=== PATIENT | male | born 1975 | race Caucasian/White ===

== ENCOUNTER 2017-01-04 09:40 | Emergency (ER) | payer BC ==
[~2017-01-04] VITALS: Ht 177.8 cm; Wt 88.2 kg
[2017-01-04 09:52] VITALS: TEMP 37.1; Ht 177.8 cm; Wt 88.2 kg
[2017-01-04 11:44] LABS: BASO % 0.1 %; BASO ABS # 0.01 K/uL (0-0.2); COMPLETE YES; EOS % 0.1 %; HEMATOCRIT 45.6 % (42-52); IG% 0.2 %; LYMPH % 11.3 %; LYMPH ABS # 1.08 K/uL (1.2-3.4); MEAN CELL VOLUME 89.1 fL (80-100); MEAN CORPUSCULAR HEMOGLOBIN 30.9 pg (25-34); MEAN CORPUSCULAR HGB CONC 34.6 g/dl (32-36); MONO % 10.6 %; NEUT % 77.7 %; PLATELET COUNT 172 K/uL (130-400); RED BLOOD COUNT 5.12 M/uL (4.7-6.1); WHITE BLOOD COUNT 9.54 K/uL (4.8-10.8)
[2017-01-04 12:10] LABS: ALB/GLOB RATIO 1.1 (0.9-2); BUN/CREATININE RATIO 14.7 (10-20); CALCIUM 9.3 mg/dl (8.5-10.1); CREATININE 1.1 mg/dl (0.60-1.40)
--- NOTE | 2017-01-04 13:47 | EMERGENCY ROOM VISIT NOTE ---
History Report prepared by Mary: Dany Leonard Under the Supervision of: Dr. Sadia Farias D.O. First contact with patient: 10:24 Chief Complaint: FLU LIKE SX Stated Complaint: SORE THROAT, SWOLLEN NODE IN NECK, FEVER, CHILLS History of Present Illness The patient is a 41 year old male who presents to the Emergency Room with complaints of worsening flu like symptoms starting three days ago. He rates his discomfort as a 2/10 in severity. The patient states that he has been experiencing a sore throat in the back left corner of his throat, swollen lymph nodes, congestion in his head, mild fevers, chills, fatigue, and loss of appetite. He reports that his throat does not feel tight and that there is mild pain when swallowing. The patient reports that he woke up in the middle of the night last night and was experiencing diaphoresis. The patient also reports that he felt a "twinge" on his left abdomen yesterday but admits it has resolved. He states that he has a history of a diagnosed seizure disorder, which he takes Dilantin for. The patient states that his last seizure was months ago and reports his seizures usually occur if he misses a dose. 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 He states that he had an encounter of unprotected sex in last 40 days and is concerned this contributed to his symptoms. The patient reports that he did not have any concerns at the time of encounter and has not had any prior STD exposures. He denies any recent travel, vomiting, diarrhea, nausea, rashes, sores, dyspnea, chest pain, and cough. Source of History: patient Onset: three days ago Position: other (global) Symptom Intensity: 2/10 Quality: other (fatigue) Timing: worsening Associated Symptoms: + fevers, + chills, + headache, + diaphoresis, + abdominal pain, + fatigue, No chest pain, No SOB, No nausea, No vomiting, No diarrhea, No rash Review of Systems See HPI for pertinent positives & negatives. A total of 10 systems reviewed and were otherwise negative. Past Medical & Surgical Medical Problems: (1) Bronchitis (2) Seizure disorder (3) Stomach problems Family History Diabetes mellitus FHx: cancer Hypertension Kidney disease Kidney stones Seizures Social History Smoking Status: Former Smoker Smokeless Tobacco Use: No Alcohol Use: occasionally Drug Use: none Housing Status: lives with family Occupation Status: employed Current/Historical Medications Scheduled Doxycycline Monohydrate (Monodox), 100 MG PO BID Physical Exam Vital Signs Date Time Temp Pulse Resp B/P (MAP) Pulse Ox O2 Delivery O2 Flow Rate FiO2 01/04/17 14:21 101 20 134/89 99 Room Air 01/04/17 13:38 102 18 144/88 97 Room Air 01/04/17 12:43 106 18 148/84 97 Room Air 01/04/17 11:16 100 18 138/81 98 Room Air 01/04/17 09:52 37.1 109 18 136/79 94 Room Air Physical Exam GENERAL: alert, well appearing, well nourished, no distress, non-toxic EYE EXAM: normal conjunctiva, PERRL and EOM's grossly intact OROPHARYNX: Mild tonsillar hypertrophy. Few exudates. Uvula midline. No mucocutaneous lesions. Lips, buccal mucosa, and tongue normal and mucous membranes are moist EAR: Left tympanic membrane slightly obscured by cerumen. NECK: Mild left submandibular lymphadenopathy. No other lymphadenopathy noted. supple, no nuchal rigidity, non-tender. LUNGS: Clear to auscultation. Normal chest wall mechanics HEART: no murmurs, S1 normal and S2 normal ABDOMEN: abdomen soft, non-tender, normo-active bowel sounds, no masses, no rebound or guarding. BACK: Back is symmetrical on inspection and there is no deformity, no midline tenderness, no CVA tenderness. SKIN: no rashes and no bruising UPPER EXTREMITIES: upper extremities are grossly normal. LOWER EXTREMITIES: No pitting edema. NEURO EXAM: Normal sensorium, cranial nerves II-XII grossly intact, normal speech, no gross weakness of arms, no gross weakness of legs. Gross sensation intact. Medical Decision & Procedures Laboratory Results 01/04/17 11:00 Red Blood Count 5.12, Mean Corpuscular Volume 89.1, Mean Corpuscular Hemoglobin 30.9, Mean Corpuscular Hemoglobin Concent 34.6, Mean Platelet Volume 11.0, Neutrophils (%) (Auto) 77.7, Lymphocytes (%) (Auto) 11.3, Monocytes (%) (Auto) 10.6, Eosinophils (%) (Auto) 0.1, Basophils (%) (Auto) 0.1, Neutrophils # (Auto ) 7.41, Lymphocytes # (Auto) 1.08, Monocytes # (Auto) 1.01, Eosinophils # (Auto ) 0.01, Basophils # (Auto) 0.01 01/04/17 11:00 Test 01/04/17 10:50 01/04/17 11:00 01/04/17 12:51 White Blood Count 9.54 K/uL (4.8-10.8) Red Blood Count 5.12 M/uL (4.7-6.1) Hemoglobin 15.8 g/dL (14.0-18.0) Hematocrit 45.6 % (42-52) Mean Corpuscular Volume 89.1 fL (80-100) Mean Corpuscular Hemoglobin 30.9 pg (25-34) Mean Corpuscular Hemoglobin Concent 34.6 g/dl (32-36) Platelet Count 172 K/uL (130-400) Mean Platelet Volume 11.0 fL (7.4-10.4) Neutrophils (%) (Auto) 77.7 % Lymphocytes (%) (Auto) 11.3 % Monocytes (%) (Auto) 10.6 % Eosinophils (%) (Auto) 0.1 % Basophils (%) (Auto) 0.1 % Neutrophils # (Auto) 7.41 K/uL (1.4-6.5) Lymphocytes # (Auto) 1.08 K/uL (1.2-3.4) Monocytes # (Auto) 1.01 K/uL (0.11-0.59) Eosinophils # (Auto) 0.01 K/uL (0-0.5) Basophils # (Auto) 0.01 K/uL (0-0.2) RDW Standard Deviation 44.9 fL (36.4-46.3) RDW Coefficient of Variation 13.6 % (11.5-14.5) Immature Granulocyte % (Auto) 0.2 % Immature Granulocyte # (Auto) 0.02 K/uL (0.00-0.02) Anion Gap 7.0 mmol/L (3-11) Est Creatinine Clear Calc Drug Dose 97.9 ml/min Estimated GFR () 95.5 Estimated GFR (Non- 82.4 BUN/Creatinine Ratio 14.7 (10-20) Calcium Level 9.3 mg/dl (8.5-10.1) Total Bilirubin 0.4 mg/dl (0.2-1) Aspartate Amino Transf (AST/SGOT) 19 U/L (15-37) Alanine Aminotransferase (ALT/SGPT) 37 U/L (12-78) Alkaline Phosphatase 115 U/L (45-117) Total Protein 7.4 gm/dl (6.4-8.2) Albumin 3.9 gm/dl (3.4-5.0) Globulin 3.5 gm/dl (2.5-4.0) Albumin/Globulin Ratio 1.1 (0.9-2) Chemistry Specimen Hemolysis HIV (1&2) Ab and P24 Ag, 4th Gener NEG (NEG) Monoscreen NEG (NEG) Laboratory results per my review. Medications Administered Medications (Trade) Dose Ordered Sig/[place]on Route Start Time Stop Time Status Last Admin Dose Admin Ceftriaxone Sodium (Rocephin Im) 250 mg NOW STAT IM 01/04/17 13:53 01/04/17 13:58 DC 01/04/17 14:10 250 MG Azithromycin (Zithromax Tab) 1,000 mg NOW ONCE PO 01/04/17 14:00 01/04/17 14:01 DC 01/04/17 14:11 1,000 MG Doxycycline Hyclate (Vibramycin Cap) 100 mg ONE ONCE PO 01/04/17 14:00 01/04/17 14:01 DC 01/04/17 14:09 100 MG ED Course 1020: The patient was evaluated in room B12B. A complete history and physical exam was performed. 1048: The patient signed the HIV consent form. 1353: Rocephin Im 250 mg IM. 1358: Upon reevaluation, the patient is feeling better. I discussed the findings and the treatment plan with the patient. He verbalizes agreement and understanding. He was discharged home. 1400: Vibramycin Cap 100 mg PO, Zithromax Tab 1000 mg PO. Medical Decision The differential diagnosis includes but is not limited to: etiologies such as viral syndrome, tonsillitis, streptococcal pharyngitis, mononucleosis, peritonsillar abscess, retropharyngeal abscess, otitis, pneumonia, influenza, as well as others were entertained. Medication Reconciliation: I attest that I have personally reviewed the patient' s current medication list. Blood pressure screening: Patient was found to have a slightly elevated blood pressure due to circumstances. I do not believe that the patient requires hypertension monitoring. Patient well-appearing here despite complaints, labs reassuring, some still pending as they were sent out labs patient made aware of this. No evidence for strep pharyngitis at this time, doubt retropharyngeal abscess, peritonsillar abscess, deep space infection, Lemierre's syndrome, Dani's angina, allergic reaction. Patient with mild left submandibular adenopathy likely reactive, given no fever leukocytosis doubt lymphadenitis/abscess. Patient states he has had reactive lymph nodes in the same spot when sick previously. Patient opted for prophylactic treatment for possible STD exposure. Discussed need for close follow-up, symptoms to watch and return for, he verbalized understanding was agreeable with plan. Doubt meningitis/encephalitis, did not feel patient warranted LP at this time. Impression Primary Impression: Pharyngitis Scribe Attestation The scribe's documentation has been prepared under my direction and personally reviewed by me in its entirety. I confirm that the note above accurately reflects all work, treatment, procedures, and medical decision making performed by me. Departure Information Dispostion Home / Self-Care Prescriptions Doxycycline Monohydrate (Monodox) 100 Mg Cap 100 MG PO BID for 14 Days, #28 CAP Prov: Sadia Farias, DO 01/04/17 Referrals Timur Parra M.D. (PCP) Forms HOME CARE DOCUMENTATION FORM, IMPORTANT VISIT INFORMATION Patient Instructions My [facility] Additional Instructions Please follow up with her family doctor as a precaution to recheck your symptoms. You may use Tylenol and ibuprofen as needed for pain. You may call back for your additional results as several labs were sent out. If you develop any worsening pain, neck swelling, fevers, vomiting, dizziness, develop a rash or sore, you have any other new concerns, please return the emergency room. Please take the antibiotics as prescribed. Please watch for any adverse reactions. Problem Qualifiers Primary Impression: Pharyngitis Pharyngitis/tonsillitis etiology: unspecified etiology Qualified Codes: J02.9 - Acute pharyngitis, unspecified
[2017-01-04] MEDS ORDERED: CEFTRIAXONE SOD 350MG/ML 1 GM VIAL IM STA (13:53)
[2017-01-04] MEDS ORDERED: DOXY100C76 PO (13:59)
[2017-01-04] MEDS ORDERED: DOXYCYCLINE HYCLATE 100 MG CAP PO ONE (14:00)
[2017-01-04] MEDS ORDERED: AZITHROMYCIN 250 MG TAB PO ONE (14:00)
[2017-01-04 14:21] VITALS: BP 134/89; PULSE 101; O2SAT 99
[2017-01-06 23:54] LABS: RAPID PLASMA REAGIN NONREACTIVE (NONREACT)
[2017-01-08 21:32] LABS: CHLAMYDIA TRACH RNA*** NOT DETECTED (NOT DETECTED); GC (NEIS GONORRHOEAE)RNA** NOT DETECTED (NOT DETECTED)
== END 2017-01-04 14:28 | disposition home or self-care (01) ==
LOC: C.EDB 09:44
DX: J02.9 Acute pharyngitis, unspecified (principal); G40.909 Epilepsy, unspecified, not intractable, without status epilepticus; Z79.899 Other long term (current) drug therapy; Z83.3 Family history of diabetes mellitus; Z80.9 Family history of malignant neoplasm, unspecified; Z82.49 Family history of ischemic heart disease and other diseases of the circulatory system; Z84.1 Family history of disorders of kidney and ureter; Z82.0 Family history of epilepsy and other diseases of the nervous system; Z87.891 Personal history of nicotine dependence

== ENCOUNTER 2017-11-10 13:06 | Emergency (ER) | payer BC, OTHER ==
[~2017-11-10] VITALS: Ht 177.8 cm; Wt 91.4 kg
[2017-11-10 13:13] VITALS: TEMP 36.9; Ht 177.8 cm; Wt 91.4 kg
[2017-11-10] MEDS ORDERED: PROPARACAINE HCL 0.5% OP SOLN 15 ML BTL OP STA (13:23)
--- NOTE | 2017-11-10 13:24 | EMERGENCY ROOM VISIT NOTE ---
History First contact with patient: 13:17 Chief Complaint: EYE PAIN Stated Complaint: EYE IRRITATION History of Present Illness The patient is a 42 year old male who presents to the Emergency Room via private vehicle with complaints of "eye irritation". The patient states that yesterday while at work at the [employer], he was using a tool to remove grease from a grill when a small flake struck him in the eye. He states that there was no pain or irritation then however today upon awakening he had some eye irritation and the sensation that there is something still stuck in his eye. He rates the discomfort as a 1/10. It is in his right eye. He believes his tetanus is up-to-date. No true vision change. Review of Systems A complete 6-point Review of Systems was discussed with the patient, with pertinent positives and negatives listed in the History of Present Illness. All remaining Review of Systems questions can be considered negative unless otherwise specified. Past Medical/Surgical History Medical Problems: (1) Bronchitis (2) Seizure disorder (3) Stomach problems Family History Diabetes mellitus FHx: cancer Hypertension Kidney disease Kidney stones Seizures Social History Smoking Status: Never Smoker Alcohol Use: occasionally Drug Use: none Housing Status: lives with family Occupation Status: employed Current/Historical Medications Scheduled Phenytoin Sodium (Dilantin), 4 CAP PO HS Physical Exam Vital Signs Date Time Temp Pulse Resp B/P (MAP) Pulse Ox O2 Delivery O2 Flow Rate FiO2 11/10/17 14:39 72 20 142/86 100 11/10/17 13:13 36.9 98 18 140/64 94 Room Air Physical Exam VITAL SIGNS - Vital signs and nursing notes were reviewed. Stable. GENERAL -42-year-old male appearing his stated age. Communicates well with provider and answers questions appropriately. HEAD - Normocephalic, Atraumatic. No Henao's Sign or Raccoon's Eyes. No depressed skull fractures palpable. EYES - PERRL with EOMI bilaterally. Sclera without noticeable foreign body or excoriations. Minimal bulbar injection noted in the right eye. Without subconjunctival hemorrhage. Palpebral conjunctiva pink and moist with no injection or discharge noted. Slit lamp examination performed as further described. EARS - No deformities of external structures noted on gross examination bilaterally. NOSE - Midline and without cyanosis. Without discharge. MOUTH/OROPHARYNX - Without perioral cyanosis. Tongue midline with equal elevation of palate bilaterally. No tonsillar hypertrophy, erythema, or exudates noted. Fair dentition noted. Slit Lamp Examination was performed of the Right eye(s). Alcaine drops were applied to the affected eye(s) for proper anesthetization. The affected eye(s) were stained with Fluorescein stain to precipitate adequate visualization of any conjunctival/scleral excoriations or ulcers. The patient's face was comfortably rested on the chin guard of the slit lamp apparatus. The lights were dimmed and the affected eye(s) were thoroughly examined under microscopy using the blue light. No uptake was present in the right eye. Additionally, the eye(s) were examined under microscopy using the regular light. Close examination revealed []. Patient tolerated the procedure well and no complications were met. Medical Decision & Procedures Medical Decision Visual acuity was assessed and was 20/25. Alcaine drop was instilled in the right eye. Slit-lamp exam was unremarkable. This was flushed with normal saline. I suspect he is experiencing residual irritation from the initial foreign body which has likely now removed itself. Patient was seen and evaluated as above in room D7. Review was performed of nursing notes and vital signs. After obtaining a thorough history and physical examination the above work up was performed. He presents with right eye irritation. I did offer him eyedrops for antibiotic coverage however he declined these and would like to follow with occupational health for follow-up or return with worsening and if need be antibiotics can be initiated at that point. I do not suspect any infection. 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 He was educated upon management. He does not wear contacts. The patient was educated upon management, had questions answered prior to discharge, and was discharged home in good condition. In the evaluation and treatment of this patient, the following differential diagnoses were considered: Corneal Abrasion, Conjunctivitis, Eye Contusion, Globe Injury, Orbital Floor Injury (Blowout Fracture), Corneal Ulcer, Keratitis , Herpes Zoster Opthalmic, Blepharitis, Orbital Cellulitis, Iritis, Scleritis/ Episcleritis, Uveitis, Temporal Arteritis, Subconjunctival Hemorrhage. Impression Primary Impression: Irritation of right eye Departure Information Dispostion Home / Self-Care Condition GOOD Referrals Timur Parra M.D. (PCP) Jose Francisco Bartholomew D.O. Patient Instructions My [facility] Additional Instructions You have been treated in the Emergency Department for right eye irritation following a small foreign body suspected. For pain control, you can use the following [id number] medicines - Regular strength (325mg/tab) Tylenol (acetaminophen) 2 tabs every 4-6 hours as needed. Do not exceed 12 tablets in a 24 hour period. Avoid taking more than 3 grams (3000 mg) of Tylenol per day. This includes any other sources of acetaminophen you may take on a regular basis. - Regular strength (200 mg/tab) Advil (ibuprofen) 1-2 tabs every 4-6 hours as needed. Do not exceed a dose of 3200 mg per day. Avoid rubbing your eyes for the next few days as this can cause irritation. Wear sunglasses when outside to help minimize your pain. You should relax in a quiet, dark room to help minimize your symptoms. You should seek evaluation of your right eye irritation by an insole department worker following your visit to the Emergency Department for occupational health. I have listed Dr. Bartholomew's number if occupational medicine recommend you see an eye doctor. Return to the emergency department if you develop the following symptoms despite treatment course outlined above: blurry vision, loss of vision, fever, intractable pain, increased redness, swelling, or purulent discharge.
[2017-11-10] MEDS ORDERED: DLN100 PO (13:47)
[2017-11-10 14:39] VITALS: BP 142/86; PULSE 72; O2SAT 100
== END 2017-11-10 14:40 | disposition home or self-care (01) ==
LOC: C.EDB 13:07 → C.EDD 14:40
DX: H57.8 Other specified disorders of eye and adnexa (principal); G40.909 Epilepsy, unspecified, not intractable, without status epilepticus